=== PATIENT | male | born 1955 | race Caucasian/White ===

== ENCOUNTER 2017-07-18 11:48 | Inpatient (IN) | payer OTHER, MEDICARE ==
[~2017-07-18] VITALS: Ht 182.9 cm; Wt 72.8 kg
[~2017-07-18 11:48] MED LIST: FOLI1TAB86 PO; LORA-512 PO; MECL-111 PO; METH5TAB4 PO; OXYC-658 PO; PANT40TA4 PO; POTA20LI CORPAK; POTA20TA19 PO; QUET100T33 PO; THIA100T66 PO
[2017-07-18] MEDS ORDERED: normal saline 1000ML IV soln IVB ONE ×2 (12:35→13:45)
[2017-07-18 13:01] LABS: BASOPHILS # (AUTO) 0.1 X10'3 (0-0.2); BASOPHILS % (AUTO) 0.5 % (0-1); EOSINOPHILS % (AUTO) 0 % (0-6); HEMATOCRIT 28.3 % (42.0-52.0); HEMOGLOBIN 9.4 g/dl (14.0-17.9); LYMPHOCYTES # (AUTO) 1.1 X10'3 (1.1-4.8); LYMPHOCYTES % (AUTO) 8.3 % (21-51); MEAN CORPUSCULAR HEMOGLOBIN 30.6 PG (27.0-31.0); MEAN CORPUSCULAR VOLUME 92.7 FL (78-98); MEAN PLATELET VOLUME 8.9 FL (7.4-10.4); MONOCYTES # (AUTO) 1.6 X10'3 (0-0.9); MONOCYTES % (AUTO) 12.5 % (2-12); NEUTROPHILS # (AUTO) 10.3 X10'3 (1.8-7.7); NEUTROPHILS % (AUTO) 78.7 % (42-75); PLATELET COUNT 201 X10'3 (140-440); RED BLOOD COUNT 3.06 X10'6 (4.70-6.10); RED CELL DISTRIBUTION WIDTH 16.3 % (11.5-14.5)
[2017-07-18 13:07] LABS: INR 1.1 INR; PROTHROMBIN TIME 11.4 SECONDS (9.0-12.0)
[2017-07-18 13:13] LABS: ALANINE AMINOTRANSFERASE 32 U/L (12-78); ALBUMIN 1.9 G/DL (3.4-5.0); ALBUMIN/GLOBULIN RATIO 0.5 (1.1-1.5); ALKALINE PHOSPHATASE 63 IU/L (46-116); ANION GAP 14 (8-16); ASPARTATE AMINO TRANSFERASE 58 U/L (10-37); BLOOD UREA NITROGEN 45 MG/DL (7-18); BUN/CREATININE RATIO 23.9 (5.4-32.0); CHLORIDE 105 MMOL/L (99-107); CREATININE 1.88 MG/DL (0.60-1.10); GLUCOSE 96 MG/DL (70-104); LIPASE 220 U/L (73-393); SODIUM 139 MMOL/L (135-145); TOTAL CARBON DIOXIDE 19.8 MMOL/L (24-32); TOTAL PROTEIN 6.1 G/DL (6.4-8.2); eGFR 37 ML/MIN
[2017-07-18 13:18] LABS: CALCIUM 8.1 MG/DL (8.5-10.1)
[2017-07-18 13:34] LABS: COLOR,URINE RED (Yellow); UA COLLECTION TYPE STRAIGHT CATH
[2017-07-18 13:35] LABS: CLARITY,URINE BLOODY (Clear)
[2017-07-18 13:42] LABS: BACTERIA,URINE 1+ /HPF (Neg); RBC,URINE TNTC /HPF (0-2); SQUAMOUS EPITHELIAL CELL,UR NONE SEEN /LPF (FEW)
[2017-07-18] MEDS ORDERED: piperacillin/tazo 3.375gm/50ml 50 ML IV ONE (13:45)
[2017-07-18] MEDS ORDERED: levoFLOXACIN-Levaquin 500mg/D5 100 ML IV ONE (13:45)
[2017-07-18] MEDS ORDERED: tranexamic acid inj. 1,000 MG in normal saline 100ml IV soln 90 ML IV ONE (14:15)
[2017-07-18] MEDS ORDERED: magnesium hydroxide 30ml (MOM) UD suspension PO PRN (14:55)
[2017-07-18] MEDS ORDERED: potassium Cl 20 mEq SR tablet PO PRN ×2 (14:55)
[2017-07-18 15:35] LABS: D-DIMER 6.23 MG/L FEU (0-0.50)
[2017-07-18] MEDS ORDERED: NO HOME MEDS (16:38)
[2017-07-18 17:25] VITALS: BP 93/60
[2017-07-18 19:00] VITALS: BP 86/46
[2017-07-18] MEDS: sodium bicarbonate (8.4%) inj. 50 MEQ in sodium chloride 0.45% 1,000 ML IV SCH (19:22)
[2017-07-18] MEDS: quetiapine 100mg tablet PO SCH (20:12)
[2017-07-18 21:01] LABS: HEMOGLOBIN 7.3 g/dl (14.0-17.9); MEAN CORPUSCULAR HEMOGLOBIN 30.3 PG (27.0-31.0); MEAN CORPUSCULAR HGB CONC 33.2 % (33.0-36.5); MEAN CORPUSCULAR VOLUME 91.2 FL (78-98); MEAN PLATELET VOLUME 9.3 FL (7.4-10.4); PLATELET COUNT 132 X10'3 (140-440); RED CELL DISTRIBUTION WIDTH 17.1 % (11.5-14.5); WHITE BLOOD COUNT 9.4 X10'3 (4.5-11.0)
[2017-07-18 21:16] LABS: HEMATOCRIT 21.8 % (42.0-52.0)
[2017-07-18] MEDS: K, MAG and/or Phos replacement - Verify level? MC SCH (22:00)
[2017-07-18 23:00] VITALS: BP 88/55
[2017-07-19] VITALS (10 sets, daily range): BP systolic 90–119; BP diastolic 44–70
[2017-07-19] MEDS: sodium bicarbonate (8.4%) inj. 50 MEQ in sodium chloride 0.45% 1,000 ML IV SCH ×4 (02:52→21:33)
[2017-07-19 05:12] LABS: BASOPHILS % (AUTO) 0.4 % (0-1); EOSINOPHILS # (AUTO) 0.1 X10'3 (0-0.9); EOSINOPHILS % (AUTO) 1.6 % (0-6); LYMPHOCYTES # (AUTO) 1.2 X10'3 (1.1-4.8); LYMPHOCYTES % (AUTO) 15.3 % (21-51); MEAN CORPUSCULAR HEMOGLOBIN 30.4 PG (27.0-31.0); MEAN CORPUSCULAR HGB CONC 33.4 % (33.0-36.5); MONOCYTES # (AUTO) 0.8 X10'3 (0-0.9); MONOCYTES % (AUTO) 10.3 % (2-12); NEUTROPHILS # (AUTO) 5.7 X10'3 (1.8-7.7); NEUTROPHILS % (AUTO) 72.4 % (42-75); PLATELET COUNT 112 X10'3 (140-440); RED BLOOD COUNT 2.28 X10'6 (4.70-6.10); RED CELL DISTRIBUTION WIDTH 16.3 % (11.5-14.5); WHITE BLOOD COUNT 7.9 X10'3 (4.5-11.0)
[2017-07-19 05:23] LABS: HEMATOCRIT 20.7 % (42.0-52.0); HEMOGLOBIN 6.9 g/dl (14.0-17.9)
[2017-07-19 05:42] LABS: INR 1.2 INR; PARTIAL THROMBOPLASTIN TIME 31 SECONDS (22-32)
[2017-07-19 06:02] LABS: ALANINE AMINOTRANSFERASE 27 U/L (12-78); ALBUMIN 1.5 G/DL (3.4-5.0); ALBUMIN/GLOBULIN RATIO 0.4 (1.1-1.5); ALKALINE PHOSPHATASE 49 IU/L (46-116); ANION GAP 10 (8-16); ASPARTATE AMINO TRANSFERASE 56 U/L (10-37); BILIRUBIN,TOTAL 0.7 MG/DL (0.1-1.0); BLOOD UREA NITROGEN 31 MG/DL (7-18); BUN/CREATININE RATIO 27.9 (5.4-32.0); CALCIUM 7.7 MG/DL (8.5-10.1); CHLORIDE 108 MMOL/L (99-107); CREATININE 1.11 MG/DL (0.60-1.10); GLUCOSE 83 MG/DL (70-104); MAGNESIUM 1.4 MG/DL (1.5-2.4); PHOSPHORUS 4.2 MG/DL (2.3-4.5); POTASSIUM 3.3 MMOL/L (3.5-5.1); SODIUM 139 MMOL/L (135-145); TOTAL CARBON DIOXIDE 21.2 MMOL/L (24-32); TOTAL PROTEIN 5.1 G/DL (6.4-8.2); eGFR 68 ML/MIN
[2017-07-19] MEDS ORDERED: pantoprazole 40mg Tablet.DR PO SCH ×2 (07:30)
[2017-07-19] MEDS ORDERED: thiamine 100mg tablet PO SCH (08:00)
[2017-07-19] MEDS: K, MAG and/or Phos replacement - Verify level? MC SCH (08:00)
[2017-07-19] MEDS: methylphenidate 5mg tablet PO SCH (08:00)
[2017-07-19] MEDS: pantoprazole 40mg Tablet.DR PO SCH (08:03)
[2017-07-19] MEDS: thiamine 100mg tablet PO SCH (08:03)
[2017-07-19] MEDS ORDERED: thiamine inj. 100 MG in normal saline 100ml IV soln 100 ML IV ONE (09:55)
[2017-07-19 11:45] LABS: HEMATOCRIT 26.2 % (42.0-52.0); HEMOGLOBIN 8.9 g/dl (14.0-17.9); MEAN CORPUSCULAR HEMOGLOBIN 30.8 PG (27.0-31.0); MEAN CORPUSCULAR HGB CONC 33.8 % (33.0-36.5); MEAN CORPUSCULAR VOLUME 91.2 FL (78-98); MEAN PLATELET VOLUME 9.1 FL (7.4-10.4); PLATELET COUNT 125 X10'3 (140-440); RED BLOOD COUNT 2.87 X10'6 (4.70-6.10); RED CELL DISTRIBUTION WIDTH 15.3 % (11.5-14.5); WHITE BLOOD COUNT 7.9 X10'3 (4.5-11.0)
[2017-07-19] MEDS: folic acid inj. 2 MG, thiamine inj. 100 MG, MVI, adult No.4 with vit. K 10 ML in dextro... IV SCH ×4 (12:00)
[2017-07-19] MEDS ORDERED: potassium Cl oral solution 20 MEQ/15 ML PO PRN (16:20)
[2017-07-19 19:46] LABS: HEMATOCRIT 24.4 % (42.0-52.0); HEMOGLOBIN 8.3 g/dl (14.0-17.9); MEAN CORPUSCULAR HEMOGLOBIN 30.5 PG (27.0-31.0); MEAN CORPUSCULAR HGB CONC 33.8 % (33.0-36.5); MEAN CORPUSCULAR VOLUME 90.1 FL (78-98); MEAN PLATELET VOLUME 8.6 FL (7.4-10.4); PLATELET COUNT 116 X10'3 (140-440); RED CELL DISTRIBUTION WIDTH 15.5 % (11.5-14.5); WHITE BLOOD COUNT 4.9 X10'3 (4.5-11.0)
[2017-07-19] MEDS ORDERED: magnesium Cl slow-release 64mg tablet PO ONE (21:15)
[2017-07-19] MEDS: quetiapine 100mg tablet PO SCH (21:33)
[2017-07-20] MEDS: sodium bicarbonate (8.4%) inj. 50 MEQ in sodium chloride 0.45% 1,000 ML IV SCH ×2 (01:55→08:55)
[2017-07-20 03:00] VITALS: BP 113/61
[2017-07-20 05:26] LABS: BASOPHILS % (AUTO) 0.4 % (0-1); EOSINOPHILS % (AUTO) 0.7 % (0-6); HEMATOCRIT 24.9 % (42.0-52.0); HEMOGLOBIN 8.4 g/dl (14.0-17.9); LYMPHOCYTES # (AUTO) 0.6 X10'3 (1.1-4.8); LYMPHOCYTES % (AUTO) 14.5 % (21-51); MEAN CORPUSCULAR HGB CONC 33.7 % (33.0-36.5); MEAN PLATELET VOLUME 8.9 FL (7.4-10.4); MONOCYTES # (AUTO) 0.4 X10'3 (0-0.9); MONOCYTES % (AUTO) 9.4 % (2-12); PLATELET COUNT 110 X10'3 (140-440); RED BLOOD COUNT 2.71 X10'6 (4.70-6.10); RED CELL DISTRIBUTION WIDTH 15.7 % (11.5-14.5)
[2017-07-20 05:50] LABS: INR 1.1 INR; PARTIAL THROMBOPLASTIN TIME 32 SECONDS (22-32); PROTHROMBIN TIME 10.9 SECONDS (9.0-12.0)
[2017-07-20 05:56] LABS: ALANINE AMINOTRANSFERASE 36 U/L (12-78); ALBUMIN 1.4 G/DL (3.4-5.0); ALBUMIN/GLOBULIN RATIO 0.4 (1.1-1.5); ANION GAP 12 (8-16); ASPARTATE AMINO TRANSFERASE 60 U/L (10-37); BLOOD UREA NITROGEN 18 MG/DL (7-18); BUN/CREATININE RATIO 22.2 (5.4-32.0); CALCIUM 7.2 MG/DL (8.5-10.1); CHLORIDE 105 MMOL/L (99-107); CREATININE 0.81 MG/DL (0.60-1.10); GLUCOSE 74 MG/DL (70-104); MAGNESIUM 1.3 MG/DL (1.5-2.4); PHOSPHORUS 3.2 MG/DL (2.3-4.5); SODIUM 139 MMOL/L (135-145); TOTAL CARBON DIOXIDE 21.7 MMOL/L (24-32); TOTAL PROTEIN 4.9 G/DL (6.4-8.2); eGFR > 90 ML/MIN
[2017-07-20 05:57] LABS: ALKALINE PHOSPHATASE 54 IU/L (46-116)
[2017-07-20 06:00] VITALS: BP 82/57
[2017-07-20 06:01] LABS: POTASSIUM 2.8 MMOL/L (3.5-5.1)
[2017-07-20] MEDS: potassium Cl oral solution 20 MEQ/15 ML PO PRN ×3 (06:06→14:21)
[2017-07-20] MEDS: methylphenidate 5mg tablet PO SCH (08:00)
[2017-07-20] MEDS: K, MAG and/or Phos replacement - Verify level? MC SCH (08:00)
[2017-07-20] MEDS: pantoprazole 40mg Tablet.DR PO SCH (09:25)
[2017-07-20] MEDS: thiamine 100mg tablet PO SCH ×2 (09:25→20:03)
[2017-07-20] MEDS: folic acid inj. 2 MG, thiamine inj. 100 MG, MVI, adult No.4 with vit. K 10 ML in dextro... IV SCH ×4 (09:26)
[2017-07-20 10:38] LABS: HEMATOCRIT 28.3 % (42.0-52.0); HEMOGLOBIN 9.5 g/dl (14.0-17.9); MEAN CORPUSCULAR HEMOGLOBIN 30.4 PG (27.0-31.0); MEAN CORPUSCULAR HGB CONC 33.7 % (33.0-36.5); MEAN CORPUSCULAR VOLUME 90.1 FL (78-98); MEAN PLATELET VOLUME 9.3 FL (7.4-10.4); PLATELET COUNT 101 X10'3 (140-440); RED BLOOD COUNT 3.14 X10'6 (4.70-6.10); RED CELL DISTRIBUTION WIDTH 15.1 % (11.5-14.5); WHITE BLOOD COUNT 3.9 X10'3 (4.5-11.0)
[2017-07-20 11:00] VITALS: BP 98/66
[2017-07-20] MEDS ORDERED: magnesium 4gm in 100ml NS 100 ML IV PRN (11:40)
[2017-07-20] MEDS ORDERED: magnesium 2GM in 50ml NS 50 ML IV PRN (11:40)
[2017-07-20] MEDS: multivitamins, therapeutics tablet PO SCH (11:55)
[2017-07-20] MEDS: folic acid 1mg tablet PO SCH (11:55)
[2017-07-20] MEDS: magnesium Cl slow-release 64mg tablet PO PRN ×2 (12:17→20:03)
[2017-07-20 15:00] VITALS: BP 112/69
[2017-07-20 17:47] LABS: HEMATOCRIT 25.9 % (42.0-52.0); HEMOGLOBIN 8.6 g/dl (14.0-17.9); MEAN CORPUSCULAR HEMOGLOBIN 30.5 PG (27.0-31.0); MEAN CORPUSCULAR HGB CONC 33.4 % (33.0-36.5); MEAN CORPUSCULAR VOLUME 91.2 FL (78-98); MEAN PLATELET VOLUME 8.9 FL (7.4-10.4); PLATELET COUNT 118 X10'3 (140-440); RED BLOOD COUNT 2.84 X10'6 (4.70-6.10); RED CELL DISTRIBUTION WIDTH 15.9 % (11.5-14.5); WHITE BLOOD COUNT 4.7 X10'3 (4.5-11.0)
[2017-07-20 19:00] VITALS: BP 100/62
[2017-07-20] MEDS: quetiapine 100mg tablet PO SCH (20:03)
[2017-07-20 23:00] VITALS: BP 101/65
[2017-07-21 03:00] VITALS: BP 118/65
[2017-07-21] MEDS: levoTHYROXINE 25mcg tablet PO SCH ×2 (04:50→08:56)
[2017-07-21 05:24] LABS: BASOPHILS % (AUTO) 0.5 % (0-1); EOSINOPHILS # (AUTO) 0.2 X10'3 (0-0.9); EOSINOPHILS % (AUTO) 2.7 % (0-6); HEMATOCRIT 25.3 % (42.0-52.0); HEMOGLOBIN 8.5 g/dl (14.0-17.9); LYMPHOCYTES # (AUTO) 0.8 X10'3 (1.1-4.8); LYMPHOCYTES % (AUTO) 14.8 % (21-51); MEAN CORPUSCULAR HEMOGLOBIN 30.5 PG (27.0-31.0); MEAN CORPUSCULAR HGB CONC 33.7 % (33.0-36.5); MEAN CORPUSCULAR VOLUME 90.4 FL (78-98); MEAN PLATELET VOLUME 8.9 FL (7.4-10.4); MONOCYTES # (AUTO) 0.6 X10'3 (0-0.9); MONOCYTES % (AUTO) 11.2 % (2-12); NEUTROPHILS % (AUTO) 70.8 % (42-75); PLATELET COUNT 111 X10'3 (140-440); RED CELL DISTRIBUTION WIDTH 15.7 % (11.5-14.5); WHITE BLOOD COUNT 5.7 X10'3 (4.5-11.0)
[2017-07-21 05:53] LABS: INR 1.1 INR; PARTIAL THROMBOPLASTIN TIME 29 SECONDS (22-32); PROTHROMBIN TIME 11.2 SECONDS (9.0-12.0)
[2017-07-21 06:00] VITALS: BP 94/55
[2017-07-21 06:28] LABS: ALANINE AMINOTRANSFERASE 42 U/L (12-78); ALBUMIN 1.4 G/DL (3.4-5.0); ALBUMIN/GLOBULIN RATIO 0.4 (1.1-1.5); ALKALINE PHOSPHATASE 62 IU/L (46-116); ANION GAP 10 (8-16); ASPARTATE AMINO TRANSFERASE 61 U/L (10-37); BILIRUBIN,TOTAL 0.8 MG/DL (0.1-1.0); BLOOD UREA NITROGEN 12 MG/DL (7-18); BUN/CREATININE RATIO 17.6 (5.4-32.0); CALCIUM 7.3 MG/DL (8.5-10.1); CHLORIDE 104 MMOL/L (99-107); CREATININE 0.68 MG/DL (0.60-1.10); GLUCOSE 79 MG/DL (70-104); MAGNESIUM 1.1 MG/DL (1.5-2.4); PHOSPHORUS 3.1 MG/DL (2.3-4.5); POTASSIUM 3.7 MMOL/L (3.5-5.1); PREALBUMIN 7.7 MG/DL (19-36); SODIUM 133 MMOL/L (135-145); TOTAL CARBON DIOXIDE 18.7 MMOL/L (24-32); TOTAL PROTEIN 4.9 G/DL (6.4-8.2); eGFR > 90 ML/MIN
[2017-07-21] MEDS: K, MAG and/or Phos replacement - Verify level? MC SCH (08:00)
[2017-07-21] MEDS: methylphenidate 5mg tablet PO SCH (08:00)
[2017-07-21] MEDS: pantoprazole 40mg Tablet.DR PO SCH (08:56)
[2017-07-21] MEDS: folic acid 1mg tablet PO SCH (08:57)
[2017-07-21] MEDS: thiamine 100mg tablet PO SCH ×2 (08:57→20:30)
[2017-07-21] MEDS: multivitamins, therapeutics tablet PO SCH (08:57)
[2017-07-21] MEDS: magnesium Cl slow-release 64mg tablet PO PRN ×2 (09:20→20:30)
[2017-07-21] MEDS: megestrol acetate 20mg tablet PO SCH (09:21)
[2017-07-21 11:00] VITALS: BP 99/67
[2017-07-21 15:00] VITALS: BP 99/68
[2017-07-21 19:00] VITALS: BP 111/75
[2017-07-21] MEDS: quetiapine 100mg tablet PO SCH (20:30)
[2017-07-21 23:00] VITALS: BP 87/64
[2017-07-22 03:00] VITALS: BP 91/60
[2017-07-22 05:19] LABS: BASOPHILS % (AUTO) 0.3 % (0-1); EOSINOPHILS # (AUTO) 0.2 X10'3 (0-0.9); EOSINOPHILS % (AUTO) 3.2 % (0-6); HEMOGLOBIN 8.6 g/dl (14.0-17.9); LYMPHOCYTES # (AUTO) 1.1 X10'3 (1.1-4.8); LYMPHOCYTES % (AUTO) 15.5 % (21-51); MEAN CORPUSCULAR HEMOGLOBIN 30.1 PG (27.0-31.0); MEAN CORPUSCULAR HGB CONC 33.3 % (33.0-36.5); MEAN CORPUSCULAR VOLUME 90.5 FL (78-98); MEAN PLATELET VOLUME 8.9 FL (7.4-10.4); MONOCYTES # (AUTO) 0.7 X10'3 (0-0.9); MONOCYTES % (AUTO) 9.9 % (2-12); NEUTROPHILS % (AUTO) 71.1 % (42-75); PLATELET COUNT 112 X10'3 (140-440); RED BLOOD COUNT 2.87 X10'6 (4.70-6.10); RED CELL DISTRIBUTION WIDTH 15.7 % (11.5-14.5)
[2017-07-22 05:41] LABS: INR 1.1 INR; PARTIAL THROMBOPLASTIN TIME 32 SECONDS (22-32); PROTHROMBIN TIME 11.4 SECONDS (9.0-12.0)
[2017-07-22 05:45] LABS: ALANINE AMINOTRANSFERASE 36 U/L (12-78); ALBUMIN 1.3 G/DL (3.4-5.0); ALBUMIN/GLOBULIN RATIO 0.4 (1.1-1.5); ALKALINE PHOSPHATASE 65 IU/L (46-116); ANION GAP 7 (8-16); ASPARTATE AMINO TRANSFERASE 39 U/L (10-37); BILIRUBIN,TOTAL 0.6 MG/DL (0.1-1.0); BLOOD UREA NITROGEN 9 MG/DL (7-18); CALCIUM 7.3 MG/DL (8.5-10.1); CHLORIDE 105 MMOL/L (99-107); GLUCOSE 76 MG/DL (70-104); MAGNESIUM 1.3 MG/DL (1.5-2.4); PHOSPHORUS 3.9 MG/DL (2.3-4.5); POTASSIUM 3.5 MMOL/L (3.5-5.1); SODIUM 135 MMOL/L (135-145); TOTAL CARBON DIOXIDE 23.2 MMOL/L (24-32); TOTAL PROTEIN 4.8 G/DL (6.4-8.2); eGFR > 90 ML/MIN
[2017-07-22 06:00] VITALS: BP 112/58
[2017-07-22] MEDS: K, MAG and/or Phos replacement - Verify level? MC SCH (08:00)
[2017-07-22] MEDS: levoTHYROXINE 25mcg tablet PO SCH (08:38)
[2017-07-22] MEDS: magnesium Cl slow-release 64mg tablet PO PRN ×2 (08:38→19:56)
[2017-07-22] MEDS: pantoprazole 40mg Tablet.DR PO SCH (08:39)
[2017-07-22] MEDS: megestrol acetate 20mg tablet PO SCH (08:39)
[2017-07-22] MEDS: folic acid 1mg tablet PO SCH (08:39)
[2017-07-22] MEDS: thiamine 100mg tablet PO SCH ×2 (08:43→19:56)
[2017-07-22] MEDS: multivitamins, therapeutics tablet PO SCH (08:44)
[2017-07-22] MEDS: methylphenidate 5mg tablet PO SCH (08:44)
[2017-07-22 11:00] VITALS: BP 89/58
[2017-07-22 15:00] VITALS: BP 99/60
[2017-07-22] MEDS: LACTOSE-FREE FOOD 237ML (BOOST) PO SCH (18:00)
[2017-07-22 19:00] VITALS: BP 110/64
[2017-07-22] MEDS: quetiapine 100mg tablet PO SCH (19:56)
[2017-07-22 23:00] VITALS: BP 92/63
[2017-07-23 03:00] VITALS: BP 104/70
[2017-07-23 05:44] LABS: BASOPHILS % (AUTO) 0.2 % (0-1); EOSINOPHILS # (AUTO) 0.2 X10'3 (0-0.9); EOSINOPHILS % (AUTO) 2.5 % (0-6); HEMATOCRIT 26.1 % (42.0-52.0); HEMOGLOBIN 8.8 g/dl (14.0-17.9); LYMPHOCYTES # (AUTO) 1.1 X10'3 (1.1-4.8); LYMPHOCYTES % (AUTO) 13.3 % (21-51); MEAN CORPUSCULAR HEMOGLOBIN 30.4 PG (27.0-31.0); MEAN CORPUSCULAR HGB CONC 33.6 % (33.0-36.5); MEAN CORPUSCULAR VOLUME 90.4 FL (78-98); MEAN PLATELET VOLUME 9.6 FL (7.4-10.4); MONOCYTES # (AUTO) 0.8 X10'3 (0-0.9); MONOCYTES % (AUTO) 10.1 % (2-12); NEUTROPHILS % (AUTO) 73.9 % (42-75); PLATELET COUNT 109 X10'3 (140-440); RED BLOOD COUNT 2.88 X10'6 (4.70-6.10); RED CELL DISTRIBUTION WIDTH 15.2 % (11.5-14.5); WHITE BLOOD COUNT 8.2 X10'3 (4.5-11.0)
[2017-07-23 05:48] LABS: INR 1.1 INR; PARTIAL THROMBOPLASTIN TIME 33 SECONDS (22-32); PROTHROMBIN TIME 11.4 SECONDS (9.0-12.0)
[2017-07-23 06:00] VITALS: BP 102/61
[2017-07-23 06:14] LABS: ALANINE AMINOTRANSFERASE 40 U/L (12-78); ALBUMIN 1.4 G/DL (3.4-5.0); ALBUMIN/GLOBULIN RATIO 0.4 (1.1-1.5); ALKALINE PHOSPHATASE 79 IU/L (46-116); ANION GAP 10 (8-16); ASPARTATE AMINO TRANSFERASE 33 U/L (10-37); BILIRUBIN,TOTAL 0.7 MG/DL (0.1-1.0); BLOOD UREA NITROGEN 11 MG/DL (7-18); BUN/CREATININE RATIO 17.5 (5.4-32.0); CALCIUM 7.6 MG/DL (8.5-10.1); CHLORIDE 105 MMOL/L (99-107); CREATININE 0.63 MG/DL (0.60-1.10); GLUCOSE 85 MG/DL (70-104); MAGNESIUM 1.6 MG/DL (1.5-2.4); POTASSIUM 3.6 MMOL/L (3.5-5.1); SODIUM 136 MMOL/L (135-145); TOTAL CARBON DIOXIDE 21.5 MMOL/L (24-32); TOTAL PROTEIN 5.1 G/DL (6.4-8.2); eGFR > 90 ML/MIN
[2017-07-23] MEDS: K, MAG and/or Phos replacement - Verify level? MC SCH (08:00)
[2017-07-23 08:20] LABS: % FREE PSA <10.0 % (.); PSA, FREE <0.01 ng/mL
[2017-07-23] MEDS: emollient combination-Eucerin 250 ML LOTION TP SCH (08:45)
[2017-07-23] MEDS: methylphenidate 5mg tablet PO SCH (08:45)
[2017-07-23] MEDS: folic acid 1mg tablet PO SCH (08:46)
[2017-07-23] MEDS: levoTHYROXINE 25mcg tablet PO SCH (08:46)
[2017-07-23] MEDS: multivitamins, therapeutics tablet PO SCH (08:48)
[2017-07-23] MEDS: thiamine 100mg tablet PO SCH ×2 (08:48→20:39)
[2017-07-23] MEDS: pantoprazole 40mg Tablet.DR PO SCH (08:48)
[2017-07-23] MEDS: megestrol acetate 20mg tablet PO SCH (08:48)
[2017-07-23] MEDS: LACTOSE-FREE FOOD 237ML (BOOST) PO SCH ×5 (08:54→20:35)
[2017-07-23 11:00] VITALS: BP 114/60
[2017-07-23 15:00] VITALS: BP 112/58
[2017-07-23] MEDS ORDERED: thiamine 100mg/ml 2ml inj. IV SCH (17:30)
[2017-07-23 19:00] VITALS: BP 106/68
[2017-07-23] MEDS: THIAMINE IV SCH (20:40)
[2017-07-23] MEDS: NORMAL SALINE IV SCH (20:40)
[2017-07-23 23:00] VITALS: BP 125/78
[2017-07-24 03:00] VITALS: BP 127/80
[2017-07-24 05:20] LABS: BASOPHILS % (AUTO) 0.3 % (0-1); EOSINOPHILS # (AUTO) 0.2 X10'3 (0-0.9); EOSINOPHILS % (AUTO) 2.5 % (0-6); HEMATOCRIT 31.3 % (42.0-52.0); HEMOGLOBIN 10.4 g/dl (14.0-17.9); LYMPHOCYTES # (AUTO) 1.5 X10'3 (1.1-4.8); LYMPHOCYTES % (AUTO) 17.2 % (21-51); MEAN CORPUSCULAR HEMOGLOBIN 30.1 PG (27.0-31.0); MEAN CORPUSCULAR HGB CONC 33.3 % (33.0-36.5); MEAN CORPUSCULAR VOLUME 90.4 FL (78-98); MEAN PLATELET VOLUME 9.2 FL (7.4-10.4); MONOCYTES # (AUTO) 0.8 X10'3 (0-0.9); MONOCYTES % (AUTO) 9.5 % (2-12); NEUTROPHILS # (AUTO) 6.1 X10'3 (1.8-7.7); NEUTROPHILS % (AUTO) 70.5 % (42-75); PLATELET COUNT 141 X10'3 (140-440); RED BLOOD COUNT 3.46 X10'6 (4.70-6.10); RED CELL DISTRIBUTION WIDTH 15.4 % (11.5-14.5); WHITE BLOOD COUNT 8.6 X10'3 (4.5-11.0)
[2017-07-24 05:30] LABS: INR 1.1 INR; PARTIAL THROMBOPLASTIN TIME 31 SECONDS (22-32); PROTHROMBIN TIME 10.9 SECONDS (9.0-12.0)
[2017-07-24 05:49] LABS: ALANINE AMINOTRANSFERASE 37 U/L (12-78); ALBUMIN 1.8 G/DL (3.4-5.0); ALBUMIN/GLOBULIN RATIO 0.4 (1.1-1.5); ALKALINE PHOSPHATASE 89 IU/L (46-116); ANION GAP 9 (8-16); ASPARTATE AMINO TRANSFERASE 30 U/L (10-37); BILIRUBIN,TOTAL 0.9 MG/DL (0.1-1.0); BLOOD UREA NITROGEN 11 MG/DL (7-18); BUN/CREATININE RATIO 13.6 (5.4-32.0); CALCIUM 7.9 MG/DL (8.5-10.1); CHLORIDE 104 MMOL/L (99-107); CREATININE 0.81 MG/DL (0.60-1.10); GLUCOSE 77 MG/DL (70-104); MAGNESIUM 1.7 MG/DL (1.5-2.4); PHOSPHORUS 3.4 MG/DL (2.3-4.5); PREALBUMIN 8.8 MG/DL (19-36); SODIUM 135 MMOL/L (135-145); TOTAL CARBON DIOXIDE 22.5 MMOL/L (24-32); TOTAL PROTEIN 6.1 G/DL (6.4-8.2); eGFR > 90 ML/MIN
[2017-07-24 06:00] VITALS: BP 123/66
[2017-07-24] MEDS: K, MAG and/or Phos replacement - Verify level? MC SCH (08:00)
[2017-07-24] MEDS: thiamine 100mg tablet PO SCH (08:10)
[2017-07-24] MEDS: pantoprazole 40mg Tablet.DR PO SCH (08:10)
[2017-07-24] MEDS: folic acid 1mg tablet PO SCH (08:10)
[2017-07-24] MEDS: megestrol acetate 20mg tablet PO SCH (08:11)
[2017-07-24] MEDS: levoTHYROXINE 25mcg tablet PO SCH (08:11)
[2017-07-24] MEDS: multivitamins, therapeutics tablet PO SCH (08:11)
[2017-07-24] MEDS: emollient combination-Eucerin 250 ML LOTION TP SCH (08:16)
[2017-07-24] MEDS: THIAMINE IV SCH (09:22)
[2017-07-24] MEDS: NORMAL SALINE IV SCH (09:22)
[2017-07-24 11:00] VITALS: BP 121/79
[2017-07-24 15:00] VITALS: BP 113/77
[2017-07-24] MEDS: LACTOSE-FREE FOOD 237ML (BOOST) PO SCH (18:00)
[2017-07-24 19:00] VITALS: BP 127/79
[2017-07-24 23:00] VITALS: BP 111/55
[2017-07-25 04:31] VITALS: BP 137/87
[2017-07-25 05:09] LABS: BASOPHILS % (AUTO) 0.5 % (0-1); EOSINOPHILS # (AUTO) 0.2 X10'3 (0-0.9); EOSINOPHILS % (AUTO) 3.4 % (0-6); HEMATOCRIT 26.8 % (42.0-52.0); LYMPHOCYTES # (AUTO) 1.8 X10'3 (1.1-4.8); LYMPHOCYTES % (AUTO) 26.9 % (21-51); MEAN CORPUSCULAR HEMOGLOBIN 30.3 PG (27.0-31.0); MEAN CORPUSCULAR HGB CONC 33.8 % (33.0-36.5); MEAN CORPUSCULAR VOLUME 89.8 FL (78-98); MEAN PLATELET VOLUME 8.7 FL (7.4-10.4); MONOCYTES # (AUTO) 0.7 X10'3 (0-0.9); MONOCYTES % (AUTO) 10.1 % (2-12); NEUTROPHILS % (AUTO) 59.1 % (42-75); PLATELET COUNT 155 X10'3 (140-440); RED BLOOD COUNT 2.98 X10'6 (4.70-6.10); RED CELL DISTRIBUTION WIDTH 15.4 % (11.5-14.5); WHITE BLOOD COUNT 6.7 X10'3 (4.5-11.0)
[2017-07-25 05:27] LABS: INR 1.1 INR; PARTIAL THROMBOPLASTIN TIME 32 SECONDS (22-32); PROTHROMBIN TIME 11.3 SECONDS (9.0-12.0)
[2017-07-25 05:33] LABS: ALANINE AMINOTRANSFERASE 32 U/L (12-78); ALBUMIN 1.6 G/DL (3.4-5.0); ALBUMIN/GLOBULIN RATIO 0.4 (1.1-1.5); ALKALINE PHOSPHATASE 76 IU/L (46-116); ANION GAP 7 (8-16); ASPARTATE AMINO TRANSFERASE 24 U/L (10-37); BILIRUBIN,TOTAL 0.8 MG/DL (0.1-1.0); BLOOD UREA NITROGEN 8 MG/DL (7-18); BUN/CREATININE RATIO 12.7 (5.4-32.0); CALCIUM 7.8 MG/DL (8.5-10.1); CHLORIDE 105 MMOL/L (99-107); CREATININE 0.63 MG/DL (0.60-1.10); GLUCOSE 78 MG/DL (70-104); MAGNESIUM 1.6 MG/DL (1.5-2.4); PHOSPHORUS 3.9 MG/DL (2.3-4.5); POTASSIUM 3.7 MMOL/L (3.5-5.1); SODIUM 136 MMOL/L (135-145); TOTAL CARBON DIOXIDE 23.7 MMOL/L (24-32); TOTAL PROTEIN 5.7 G/DL (6.4-8.2); eGFR > 90 ML/MIN
[2017-07-25 06:00] VITALS: BP 121/82
[2017-07-25] MEDS: K, MAG and/or Phos replacement - Verify level? MC SCH (08:00)
[2017-07-25] MEDS: megestrol acetate 20mg tablet PO SCH (08:00)
[2017-07-25] MEDS: THIAMINE IV SCH (08:26)
[2017-07-25] MEDS: multivitamins, therapeutics tablet PO SCH (08:26)
[2017-07-25] MEDS: levoTHYROXINE 25mcg tablet PO SCH (08:26)
[2017-07-25] MEDS: LACTOSE-FREE FOOD 237ML (BOOST) PO SCH ×3 (08:26→18:15)
[2017-07-25] MEDS: pantoprazole 40mg Tablet.DR PO SCH (08:26)
[2017-07-25] MEDS: folic acid 1mg tablet PO SCH (08:26)
[2017-07-25] MEDS: NORMAL SALINE IV SCH (08:26)
[2017-07-25] MEDS: emollient combination-Eucerin 250 ML LOTION TP SCH (08:27)
[2017-07-25 11:00] VITALS: BP 107/77
[2017-07-25 15:00] VITALS: BP 128/87
[2017-07-25 19:00] VITALS: BP 120/84
[2017-07-25 23:00] VITALS: BP 123/80
[2017-07-26 03:00] VITALS: BP 120/90
[2017-07-26 05:14] LABS: BASOPHILS % (AUTO) 0.2 % (0-1); EOSINOPHILS # (AUTO) 0.2 X10'3 (0-0.9); HEMATOCRIT 27.8 % (42.0-52.0); HEMOGLOBIN 9.3 g/dl (14.0-17.9); LYMPHOCYTES # (AUTO) 1.7 X10'3 (1.1-4.8); LYMPHOCYTES % (AUTO) 25.4 % (21-51); MEAN CORPUSCULAR HGB CONC 33.5 % (33.0-36.5); MEAN CORPUSCULAR VOLUME 89.8 FL (78-98); MEAN PLATELET VOLUME 8.6 FL (7.4-10.4); MONOCYTES # (AUTO) 0.6 X10'3 (0-0.9); MONOCYTES % (AUTO) 9.5 % (2-12); NEUTROPHILS % (AUTO) 61.9 % (42-75); PLATELET COUNT 180 X10'3 (140-440); RED CELL DISTRIBUTION WIDTH 15.8 % (11.5-14.5); WHITE BLOOD COUNT 6.5 X10'3 (4.5-11.0)
[2017-07-26 05:27] LABS: INR 1.1 INR; PARTIAL THROMBOPLASTIN TIME 29 SECONDS (22-32); PROTHROMBIN TIME 11.3 SECONDS (9.0-12.0)
[2017-07-26 05:46] LABS: ALANINE AMINOTRANSFERASE 32 U/L (12-78); ALBUMIN 1.7 G/DL (3.4-5.0); ALBUMIN/GLOBULIN RATIO 0.4 (1.1-1.5); ALKALINE PHOSPHATASE 78 IU/L (46-116); ANION GAP 7 (8-16); ASPARTATE AMINO TRANSFERASE 28 U/L (10-37); BILIRUBIN,TOTAL 0.8 MG/DL (0.1-1.0); BLOOD UREA NITROGEN 7 MG/DL (7-18); BUN/CREATININE RATIO 11.3 (5.4-32.0); CALCIUM 7.6 MG/DL (8.5-10.1); CHLORIDE 102 MMOL/L (99-107); CREATININE 0.62 MG/DL (0.60-1.10); GLUCOSE 77 MG/DL (70-104); MAGNESIUM 1.6 MG/DL (1.5-2.4); PHOSPHORUS 4.1 MG/DL (2.3-4.5); SODIUM 133 MMOL/L (135-145); TOTAL CARBON DIOXIDE 23.9 MMOL/L (24-32); TOTAL PROTEIN 6.1 G/DL (6.4-8.2); eGFR > 90 ML/MIN
[2017-07-26 06:00] VITALS: BP 121/72
[2017-07-26] MEDS: K, MAG and/or Phos replacement - Verify level? MC SCH ×2 (07:45→07:53)
[2017-07-26] MEDS: levoTHYROXINE 25mcg tablet PO SCH (07:52)
[2017-07-26] MEDS: folic acid 1mg tablet PO SCH (07:52)
[2017-07-26] MEDS: megestrol acetate 20mg tablet PO SCH (07:52)
[2017-07-26] MEDS: multivitamins, therapeutics tablet PO SCH (07:52)
[2017-07-26] MEDS: pantoprazole 40mg Tablet.DR PO SCH (07:52)
[2017-07-26] MEDS: LACTOSE-FREE FOOD 237ML (BOOST) PO SCH ×2 (07:53→13:02)
[2017-07-26] MEDS: THIAMINE IV SCH (07:53)
[2017-07-26] MEDS: NORMAL SALINE IV SCH (07:53)
[2017-07-26] MEDS: emollient combination-Eucerin 250 ML LOTION TP SCH (07:53)
[2017-07-26 11:00] VITALS: BP 98/60
== END 2017-07-26 14:10 | DRG 70 ==
LOC: ER 11:49 → ED HOLD 14:51 → EDBEDREQ 16:13 → PCU 3S 17:21
PROVIDERS: ADMIT Internal Medicine Critical Care Medicine; ATTEND Internal Medicine
PROC: 30233N1 Transfusion of Nonautologous Red Blood Cells into Peripheral Vein, Percutaneous Approach (ICD-10-PCS; principal; 2017-07-19)
DX: G93.40 Encephalopathy, unspecified (principal); E43 Unspecified severe protein-calorie malnutrition; N17.9 Acute kidney failure, unspecified; D69.59 Other secondary thrombocytopenia; F03.90 Unspecified dementia, unspecified severity, without behavioral disturbance, psychotic disturbance, mood disturbance, and anxiety; N39.0 Urinary tract infection, site not specified; K70.30 Alcoholic cirrhosis of liver without ascites; R31.0 Gross hematuria; D64.9 Anemia, unspecified; E03.9 Hypothyroidism, unspecified; E87.6 Hypokalemia; F10.229 Alcohol dependence with intoxication, unspecified; F41.9 Anxiety disorder, unspecified; G89.29 Other chronic pain; M54.9 Dorsalgia, unspecified; F17.210 Nicotine dependence, cigarettes, uncomplicated; Z66 Do not resuscitate; Z88.8 Allergy status to other drugs, medicaments and biological substances; Z68.21 Body mass index [BMI] 21.0-21.9, adult
CPT/HCPCS: 36415; 71010; 74000; 74176; 80053; 81001; 82140; 83605; 83690; 83735; 84100; 84132; 84134; 84153; 84154; 84439; 84443; 85025; 85027; 85379; 85610; 85730; 86885; 86900; 86901; 86920; 87040; 87070; 87077; 87088; 87186; 96360; 99291; A4315; A4353; A4649; A6209; A6212; A6213; A6449; J1956; J2543; J3411; J3490; J7030; J7060; P9016